=== PATIENT | male | born 1960 | race African-American/Black ===

== ENCOUNTER 2019-08-31 08:57 | Inpatient (IN) | payer BC, MEDICARE ==
[~2019-08-31] VITALS: Ht 182.9 cm; Wt 62.8 kg
[2019-08-31 09:53] LABS: HEMATOCRIT. 42.4 % (42.0-52.0); HEMOGLOBIN. 14.1 g/dL (14.0-18.0); MEAN CORPUSCULAR HEMOGLOBIN 33.5 pg (28.0-32.0); MEAN CORPUSCULAR VOLUME 100.5 fL (80.0-94.0); MEAN PLATELET VOLUME 7.8 fl (7.4-10.4); PLATELET 150 x1000/uL (130-400); RED BLOOD CELL COUNT 4.22 mill/uL (4.7-6.1); RED CELL DISTRIBUTION WIDTH 16.5 % (11.6-14.6)
[2019-08-31 10:01] LABS: CHLORIDE 102 mEq/L (98-107)
[2019-08-31 10:05] LABS: ETHANOL BLOOD < 10 mg/dL
[2019-08-31 10:11] LABS: PHENOBARBITAL < 2.1 ug/mL (15.0-40.0); VALPROIC ACID < 3.0 ug/mL (50-100)
[2019-08-31 10:35] LABS: PLATELET ESTIMATE NORMAL
[2019-08-31 10:36] LABS: CARBAMAZEPINE < 0.5 ug/mL (4-12)
[2019-08-31] MEDS ORDERED: LORAZEPAM 2MG/ML CPJ IM STA (10:48)
[2019-08-31 11:00] LABS: CLARITY URINE CLEAR (CLEAR); COLOR URINE YELLOW (YELLOW); KETONES URINE NEGATIVE (NEGATIVE); LEUKOCYTE ESTERASE URINE NEGATIVE (NEGATIVE); NITRITE URINE NEGATIVE (NEGATIVE); OCCULT BLOOD URINE TRACE (NEGATIVE); PROTEIN URINE 2+ (NEGATIVE); SPECIFIC GRAVITY URINE 1.014 (1.005-1.030); UROBILINOGEN URINE 0.2 E.U./dL (0.2-1.0)
[2019-08-31] MEDS ORDERED: VANCOMYCIN 1 G PREMIX 200 ML IV ONE (11:00)
[2019-08-31] MEDS ORDERED: PIPERACILLIN/TAZ 3.375G PREMIX 50 ML IV ONE (11:00)
[2019-08-31] MEDS ORDERED: SODIUM CHLORIDE 0.9% 1000ML BAG (SEPSIS BOLUS) IV ONE (11:00)
[2019-08-31 11:33] LABS: *AMPHETAMINES SCREEN URINE NEGATIVE (NEGATIVE)
[2019-08-31 11:34] LABS: *BARBITURATES SCREEN URINE NEGATIVE (NEGATIVE); *BENZODIAZEPINES SCREEN URINE NEGATIVE (NEGATIVE); *COCAINE SCREEN URINE NEGATIVE (NEGATIVE); METHADONE URINE SCREEN NEGATIVE (NEGATIVE); OPIATES URINE SCREEN NEGATIVE (NEGATIVE); PHENCYCLIDINE URINE SCREEN NEGATIVE (NEGATIVE)
[2019-08-31 11:35] LABS: CANNABINOID URINE SCREEN NEGATIVE (NEGATIVE)
[2019-08-31] MEDS ORDERED: SODIUM CHLORIDE 0.9% 1,000 ML IV ONE (13:17)
[2019-08-31] MEDS ORDERED: LEVETIRACETAM 1000MG/100ML 100 ML IV ONE (14:00)
[2019-08-31 15:30] LABS: PROTHROMBIN TIME 10.3 sec (9.6-11.0)
[2019-08-31] MEDS ORDERED: DEXT 5%/0.45% NACL 1000ML 1,000 ML IV SCH (16:58)
[2019-08-31] MEDS ORDERED: IPRATROPIUM/ALBUTEROL 0.5-3(2.5)MG/3ML NEB HHN PRN (17:00)
[2019-08-31] MEDS ORDERED: MAGNESIUM/ALUMINUM HYDROXIDE/SIMETHICONE 30ML UDC PO PRN (17:00)
[2019-08-31] MEDS ORDERED: LORAZEPAM 2MG/ML CPJ IV PRN (17:00)
[2019-08-31] MEDS ORDERED: HYDRALAZINE 20MG/ML VIAL IV PRN (17:00)
[2019-08-31] MEDS ORDERED: HYDROCODONE/ACETAMINOPHEN 10/325MG TABLET PO PRN (17:00)
[2019-08-31] MEDS ORDERED: ACETAMINOPHEN 325MG TABLET PO PRN (17:00)
[2019-08-31] MEDS ORDERED: MORPHINE SULFATE 2 MG/ML CPJ (NOT FOR IM USE) IV PRN (17:00)
[2019-08-31] MEDS ORDERED: DOCUSATE SODIUM 100MG CAPSULE PO PRN (17:00)
[2019-08-31] MEDS ORDERED: ONDANSETRON HCL 4MG/2ML INJ IV PRN (17:00)
[2019-08-31] MEDS ORDERED: CLONIDINE 0.1MG TABLET PO PRN (17:00)
[2019-08-31] MEDS ORDERED: PIPERACILLIN/TAZ 3.375G PREMIX 50 ML IV SCH (18:30)
[2019-08-31] MEDS ORDERED: ENOXAPARIN 40MG/0.4ML SYR SUBCUT NR (18:30)
[2019-08-31 21:20] VITALS: BP_SYST 157; BP_SYST 159; BP_DIAS 68
[2019-08-31] MEDS: SODIUM CHLORIDE 0.9% INJ 3ML FLUSH IVF SCH (22:00)
[2019-09-01] VITALS (14 sets, daily range): BP systolic 103–169; BP diastolic 68–98
[2019-09-01] MEDS: ENOXAPARIN 40MG/0.4ML SYR SUBCUT SCH ×2 (00:29→20:16)
[2019-09-01] MEDS: PIPERACILLIN/TAZOBACTAM 3.375 G in DEXT 5% WATER 100 ML IV SCH ×4 (00:30→22:43)
[2019-09-01 00:46] LABS: CREATINE KINASE 131 IU/L (39-308)
[2019-09-01 00:48] LABS: CREATINE KINASE MB FRACTION < 1.0 ng/mL (0.5-3.6)
[2019-09-01] MEDS: SODIUM CHLORIDE 0.9% INJ 3ML FLUSH IVF SCH ×3 (06:00→20:16)
[2019-09-01 06:25] LABS: CHLORIDE 107 mEq/L (98-107)
[2019-09-01 06:38] LABS: CREATINE KINASE 100 IU/L (39-308)
[2019-09-01 06:46] LABS: CREATINE KINASE MB FRACTION < 1.0 ng/mL (0.5-3.6)
[2019-09-01 06:56] LABS: HEMATOCRIT. 37.5 % (42.0-52.0); HEMOGLOBIN. 12.7 g/dL (14.0-18.0); MEAN CORPUSCULAR HEMOGLOBIN 34.1 pg (28.0-32.0); MEAN CORPUSCULAR VOLUME 100.5 fL (80.0-94.0); MEAN PLATELET VOLUME 8.4 fl (7.4-10.4); PLATELET 132 x1000/uL (130-400); RED BLOOD CELL COUNT 3.74 mill/uL (4.7-6.1); RED CELL DISTRIBUTION WIDTH 16.2 % (11.6-14.6)
[2019-09-01] MEDS: LEVETIRACETAM 500MG TABLET PO SCH ×2 (10:23→20:17)
[2019-09-01] MEDS ORDERED: POTASSIUM CHLORIDE 20MEQ TABLET SR PO NR (12:00)
[2019-09-01] MEDS: GUAIFENESIN 200MG/10ML SUGAR FREE UDC PO PRN ×2 (14:25→20:17)
[2019-09-01 16:20] LABS: PLATELET ESTIMATE NORMAL
[2019-09-01] MEDS ORDERED: LEVETIRACETAM 500MG TABLET PO SCH ×2 (21:00)
[2019-09-02] VITALS (14 sets, daily range): BP systolic 122–162; BP diastolic 57–121
[2019-09-02] MEDS: PIPERACILLIN/TAZOBACTAM 3.375 G in DEXT 5% WATER 100 ML IV SCH ×4 (03:15→20:56)
[2019-09-02] MEDS: SODIUM CHLORIDE 0.9% INJ 3ML FLUSH IVF SCH ×3 (06:39→21:07)
[2019-09-02] MEDS: DIPHENHYDRAMINE 50MG/ML VIAL IV PRN ×3 (07:52→14:10)
[2019-09-02] MEDS: THIAMINE HCL 100MG TABLET PO SCH ×2 (07:53→16:49)
[2019-09-02] MEDS: LEVETIRACETAM 500MG TABLET PO SCH ×2 (07:53→20:55)
[2019-09-02] MEDS: FOLIC ACID 1MG TABLET PO SCH (07:53)
[2019-09-02] MEDS ORDERED: LORAZEPAM 2MG/ML CPJ IV PRN (08:30)
[2019-09-02] MEDS: CHLORDIAZEPOXIDE 25MG CAPSULE PO SCH ×3 (09:39→22:45)
[2019-09-02] MEDS: NICOTINE 21MG PATCH TD SCH (09:39)
[2019-09-02] MEDS ORDERED: POTASSIUM CHLORIDE 20MEQ TABLET SR PO SCH (10:30)
[2019-09-02] MEDS ORDERED: CHLORDIAZEPOXIDE 25MG CAPSULE PO SCH (14:00)
[2019-09-02] MEDS: ENOXAPARIN 40MG/0.4ML SYR SUBCUT SCH (20:55)
[2019-09-03] VITALS (9 sets, daily range): BP systolic 110–150; BP diastolic 52–110
[2019-09-03] MEDS: PIPERACILLIN/TAZOBACTAM 3.375 G in DEXT 5% WATER 100 ML IV SCH ×2 (03:20→08:21)
[2019-09-03] MEDS: SODIUM CHLORIDE 0.9% INJ 3ML FLUSH IVF SCH (06:01)
[2019-09-03] MEDS: CHLORDIAZEPOXIDE 25MG CAPSULE PO SCH (06:01)
[2019-09-03 06:52] LABS: CHLORIDE 105 mEq/L (98-107)
[2019-09-03 07:57] LABS: BASOPHILS % 0.6 % (0.0-2.0); EOSINOPHILS % 12.2 % (0.0-5.0); HEMATOCRIT. 48.4 % (42.0-52.0); HEMOGLOBIN. 16.4 g/dL (14.0-18.0); LYMPHOCYTES % 16.3 % (20.0-50.0); MEAN CORPUSCULAR HEMOGLOBIN 34.8 pg (28.0-32.0); MEAN CORPUSCULAR VOLUME 102.5 fL (80.0-94.0); MEAN PLATELET VOLUME 8.9 fl (7.4-10.4); NEUTROPHILS % 58.9 % (40.0-76.0); PLATELET 184 x1000/uL (130-400); RED BLOOD CELL COUNT 4.73 mill/uL (4.7-6.1); RED CELL DISTRIBUTION WIDTH 16.3 % (11.6-14.6)
[2019-09-03] MEDS: FOLIC ACID 1MG TABLET PO SCH (08:21)
[2019-09-03] MEDS: LEVETIRACETAM 500MG TABLET PO SCH (08:21)
[2019-09-03] MEDS: THIAMINE HCL 100MG TABLET PO SCH (08:21)
[2019-09-03] MEDS: NICOTINE 21MG PATCH TD SCH (09:00)
== END 2019-09-03 10:35 | disposition home or self-care (01) | DRG 100 ==
LOC: EDBD 09:12 → ER 09:12 → EDBEDREQ 10:59 → 3WST 13:32 → EDBEDREQTM 13:37 → EDBEDREQ 13:37 → ENRESERV 19:10
PROVIDERS: ADMIT Internal Medicine; ATTEND Internal Medicine
DX: G40.909 Epilepsy, unspecified, not intractable, without status epilepticus (principal); G93.41 Metabolic encephalopathy; R65.10 Systemic inflammatory response syndrome (SIRS) of non-infectious origin without acute organ dysfunction; D64.9 Anemia, unspecified; F17.210 Nicotine dependence, cigarettes, uncomplicated; I65.23 Occlusion and stenosis of bilateral carotid arteries; Z91.14 Patient's other noncompliance with medication regimen; Z91.19 Patient's noncompliance with other medical treatment and regimen; Z86.73 Personal history of transient ischemic attack (TIA), and cerebral infarction without residual deficits; Z71.6 Tobacco abuse counseling
CPT/HCPCS: 36415; 71045; 80048; 80051; 80053; 80156; 80165; 80184; 80185; 80305; 80320; 81003; 82310; 82550; 82553; 83605; 84145; 84484; 85025; 93005; 93970; 97110; 97116; 97162; 97166; 99291; J1200; J1650; J1953; J2060; J2543; J3370; J7030; J7060; G0480

== ENCOUNTER 2020-01-21 00:16 | Emergency (ER) | payer MEDICARE, MEDICAID ==
[~2020-01-21] VITALS: Ht 182.9 cm; Wt 64.0 kg
[2020-01-21 01:14] LABS: HEMATOCRIT. 43.3 % (42.0-52.0); HEMOGLOBIN. 14.9 g/dL (14.0-18.0); MEAN CORPUSCULAR HEMOGLOBIN 36.3 pg (28.0-32.0); MEAN CORPUSCULAR VOLUME 105.5 fL (80.0-94.0); MEAN PLATELET VOLUME 7.6 fl (7.4-10.4); PLATELET 180 x1000/uL (130-400); RED BLOOD CELL COUNT 4.11 mill/uL (4.7-6.1); RED CELL DISTRIBUTION WIDTH 19.9 % (11.6-14.6)
[2020-01-21 01:28] LABS: CLARITY URINE CLEAR (CLEAR); COLOR URINE YELLOW (YELLOW); KETONES URINE NEGATIVE (NEGATIVE); LEUKOCYTE ESTERASE URINE NEGATIVE (NEGATIVE); NITRITE URINE NEGATIVE (NEGATIVE); OCCULT BLOOD URINE NEGATIVE (NEGATIVE); PH URINE 5.5 (4.5-8.0); PROTEIN URINE NEGATIVE (NEGATIVE)
[2020-01-21 01:39] LABS: PARTIAL THROMBOPLASTIN TIME 27.3 sec (23.4-31.0); PROTHROMBIN TIME 10.9 sec (9.6-11.0)
[2020-01-21 01:42] LABS: *AMPHETAMINES SCREEN URINE NEGATIVE (NEGATIVE); *BARBITURATES SCREEN URINE NEGATIVE (NEGATIVE)
[2020-01-21 01:43] LABS: *BENZODIAZEPINES SCREEN URINE NEGATIVE (NEGATIVE); *COCAINE SCREEN URINE PRESUMTIVE POSITIVE (NEGATIVE); CANNABINOID URINE SCREEN NEGATIVE (NEGATIVE); METHADONE URINE SCREEN NEGATIVE (NEGATIVE); OPIATES URINE SCREEN NEGATIVE (NEGATIVE); PHENCYCLIDINE URINE SCREEN NEGATIVE (NEGATIVE)
[2020-01-21 02:27] LABS: CHLORIDE 111 mEq/L (98-107)
[2020-01-21 02:36] LABS: CREATINE KINASE 118 IU/L (39-308)
[2020-01-21 02:52] LABS: ETHANOL BLOOD 296 mg/dL
[2020-01-21 02:59] LABS: PLATELET ESTIMATE NORMAL
[2020-01-21 05:46] VITALS: BP 160/103
== END 2020-01-21 07:02 | disposition home or self-care (01) ==
LOC: ER 00:37
DX: R53.1 Weakness (principal); F10.10 Alcohol abuse, uncomplicated; Y90.8 Blood alcohol level of 240 mg/100 ml or more; F14.10 Cocaine abuse, uncomplicated; F19.10 Other psychoactive substance abuse, uncomplicated; R26.2 Difficulty in walking, not elsewhere classified; E87.6 Hypokalemia; R56.9 Unspecified convulsions; Z96.649 Presence of unspecified artificial hip joint
CPT/HCPCS: 36415; 71045; 80053; 80305; 80320; 81003; 82550; 83880; 84484; 85025; 93005; 99285; G0480